=== PATIENT | female | born 1985 | race Caucasian/White ===

== ENCOUNTER 2025-01-10 10:07 | Outpatient (REF) | payer OTHER, SELFPAY ==
[2025-01-10 13:06] LABS: MANUAL DIFF FLAG NO
[2025-01-10 13:12] LABS: Hematocrit 39.4 % (37.0-47.0); Hemoglobin 12.6 g/dl (12.0-16.0); Imm Gran Abs Auto 0.02 X10*3/uL (0.00-0.03); Imm Gran Pct Auto 0.4 % (0.0-0.4); Lymphocytes Absolute Auto 1.3 X10*3/uL (1.2-4.9); Mean Corpuscular HGB Conc 32.0 g/dl (31.0-35.0); Mean Corpuscular Hemoglobin 30.7 pg (27.0-33.0); Mean Corpuscular Volume 96.1 fL (80.0-98.0); NRBC Abs Auto 0.000 X10*3/uL (0.0-0.012); NRBC Pct Auto 0.0 /100WBC (0.0-0.2); Platelet Count 275 X10*3/uL (160-400); Red Blood Count 4.10 X10*6/uL (4.20-5.50); White Blood Count 5.6 X10*3/uL (4.8-10.8)
[2025-01-10 13:28] LABS: Appearance Urine Cloudy; Glucose Urine UA Negative (Negative); PH 6.0 (5.0-9.0); Specific Gravity - Urine 1.025 (1.005-1.025); UMIC TRIGGER UACC YES
[2025-01-10 13:50] LABS: Alanine Aminotransferase 29 U/L (0-31); Albumin Level 4.8 g/dL (3.5-5.0); Alkaline Phosphatase 48 U/L (39-117); Anion Gap 11 (12-20); Aspartate Amino Transferase 24 U/L (5-31); Blood Urea Nitrogen 11 mg/dL (9-16); Calcium 9.2 mg/dL (8.4-10.2); Carbon Dioxide 26 mmol/L (22-29); Chloride 109 mmol/L (96-108); Cholesterol 190 mg/dL (<200); Erythrocyte Sedimentation Rate 2 MM/HR (0-20); Estimated Glomerular Filt Rate > 60; HDL Cholesterol 74 mg/dL (>40); Magnesium 2.1 mg/dL (1.6-2.6); Potassium 4.5 mmol/L (3.3-5.1); Sodium 141 mmol/L (135-145); Total Protein 7.0 g/dL (6.5-8.0); Triglycerides 94 mg/dL (<150)
[2025-01-10 13:55] LABS: UACC Culture Trigger YES
[2025-01-10 14:18] LABS: HBS Num1 0.00 mIU/mL (0-7.99); HBsAGNum1 0.33 S/CO (0.00-0.99); HIV Num 1 0.10 S/CO (0.00-0.99); Hepatitis B Surface Antigen Negative (Negative); ~HepC Num1 0.08 S/CO (0.00-0.79); ~Hepatitis B Surface Antibody NONREACTIVE (Nonreactive); ~Hepatitis C Antibody Nonreactive (Nonreactive)
[2025-01-10 14:32] LABS: Folate 14.1 ng/mL (> or = 4.0); Vitamin B12 442 pg/mL (200-900)
[2025-01-14 09:44] LABS: Anti Nuclear Antibody Screen NEGATIVE (NEGATIVE)
[2025-01-16 10:48] LABS: VITAMIN D (1,25 OH) D3 79 pg/mL; Vit D (1,25-Dihydroxy) Total 79 pg/mL (18-72); Vitamin D (1,25 OH) D2 <8 pg/mL
== END 2025-01-10 10:08 | disposition home or self-care (01) ==
LOC: HO.HKASLDS 10:07
PROVIDERS: PCP Student in an Organized Health Care Education/Training Program; Visit Provider Student in an Organized Health Care Education/Training Program
DX: Z13.9 Encounter for screening, unspecified (principal); R76.0 Raised antibody titer; K64.9 Unspecified hemorrhoids; G47.33 Obstructive sleep apnea (adult) (pediatric); D50.8 Other iron deficiency anemias; E03.9 Hypothyroidism, unspecified; M25.50 Pain in unspecified joint; R53.83 Other fatigue; R51.9 Headache, unspecified
CPT/HCPCS: 36415; 80053; 80061; 81001; 82607; 82652; 82746; 83036; 83735; 84443; 85025; 85652; 86038; 86140; 86200; 86225; 86431; 86706; 86803; 87086; 87340; 87389; 99202

== ENCOUNTER 2025-01-10 10:07 | Outpatient (AMB) | payer OTHER, SELFPAY ==
--- NOTE | 2025-01-10 10:18 | A.OFFPC_ITS ---
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 Anemia: - The patient reports a history of anemi a, requiring periodic blood tests to determine the need for supplementation. - She has been informed that her digesti ve system may not absorb nutrients effectively, contributing to her anemia. Hypothyroidism: - The patient has a history of hypothyro idism and requires regular monitoring of thyroid function tests. Hemorrhoids: - The patient has both internal and exte rnal hemorrhoids, confirmed by colonoscopy in [place]. - Conservative treatment with wipes is c urrently used, but surgical intervention has been recommended. Insomnia: - The patient experiences difficulty sle eping, characterized by frequent awakenings and inability to return to sleep. - She has tried melatonin without relief and denies symptoms of sleep apnea. Joint Pain: - The patient reports joint pain in shou lders, knees, and ankles, worsening over the past six months. - There is no family history of autoimmu ne diseases. Fatigue: - The patient reports significant fatigu e, potentially related to her insomnia and anemia. Headaches: - The patient experiences headaches, colleen etimes upon waking or during the night. Review of Systems - General: Reports fatigue and insomnia. - Neurological: Reports headaches, denie s dizziness or syncope. - Musculoskeletal: Reports joint pain in shoulders, knees, and ankles. - Gastrointestinal: Reports hemorrhoids, denies nausea or vomiting. - Endocrine: Reports hypothyroidism, den ies polyuria or polydipsia. 10-point ROS reviewed and negative excep t as noted in HPI Past Medical History - Anemia - Hypothyroidism - Hemorrhoids Health Maintenance - Referral to painter decorator for hem orrhoids and potential malabsorption issues. - Sleep study to evaluate insomnia. - Blood work including CBC, thyroid func tion tests, vitamin D, B12, and folate levels. - Mammogram screening ordered. Physical Exam General: Well-appearing, in no acute distress. Vital signs: Within normal limits. HEENT: Normocephalic, atraumatic. PERRLA, EOMI. Conjunctiva clear, sclera anicteric. Oropharynx clear, mucous membranes moist. TMs intact bilaterally. Neck: Supple, no lymphadenopathy, no thyromegaly, no JVD or carotid bruits. Cardiovascular: RRR, normal S1/S2, no murmurs, rubs, or gallops. Peripheral pulses 2+ and symmetric. No edema. Respiratory: Lungs clear to auscultation bilaterally, no wheezes, rales, or rhonchi. Normal effort. Abdomen: Soft, non-tender, non-distended. Normoactive bowel sounds. No hepatosplenomegaly, no masses. MSK: Full range of motion, no joint swelling or deformity. Normal gait. Skin: Warm, dry, intact. No rashes, lesions, or pallor. Neuro: Alert and oriented x3. Cranial nerves II-XII intact. Strength 5/5 throughout. Sensation intact. Reflexes 2+ symmetric. Normal coordination and gait. Psych: Appropriate mood and affect. Normal judgment and insight. Plan 1. Anemia - Blood tests will be conducted to asses s anemia status and determine supplementation needs. - Referral to painter decorator to mauricio barahona potential malabsorption issues contributing to anemia. 2. Hypothyroidism - Thyroid function tests will be monitor ed to ensure proper management of hy pothyroidism. 3. Hemorrhoids - Referral to painter decorator for maico marin and discussion of surgical options for hemorrhoids. 4. Insomnia - A sleep study will be conducted to antonio ntify underlying causes of insomnia. - Consideration of cognitive behavioral therapy for insomnia as a non- pharmacological intervention. 5. Joint Pain - SIENNA screening will be performed to rul e out autoimmune causes of joint pain. 6. Fatigue - Fatigue will be evaluated in context o f anemia and insomnia, with follow-up after initial tests. 7. Headaches - Headache patterns will be monitored an d potential triggers assessed. Discussion Notes I discussed with the patient the need for a comprehensive evaluation of her anemia, hypothyroidism, and insomnia. We agreed on conducting a sleep study and referring her to a painter decorator for further evaluation of her hemorrhoids and potential malabsorption issues. I emphasized the importance of follow-up visits to review test results and adjust treatment plans accordingly. Patient was informed and verbally consented to the use of an ambient scribefor clinic note documentation during this visit. Patient Instructions - Follow up with the painter decorator for hemorrhoids and digestive concerns. - Complete the sleep study as instructed and return the equipment promptly. - Attend follow-up appointment to [facility] s blood test results and next steps. - Monitor headache patterns and note any potential triggers. Total time spent caring for the patient today was 45 minutes. This includes time spent before the visit reviewing the chart, time spent documenting, and time spent reviewing laboratory results, diagnostic imaging, medications, performing a medically necessary evaluation, counseling on diagnoses, care coordination, ordering appropriate tests, ordering appropriate medications, review of tests performed by other providers, reporting test results with the patient. [facility] Medical History (Updated 01/10/25 @ 10:34 by Florentino Crump MD) Insomnia Hemorrhoids Family History (Updated 01/10/25 @ 10:25 by Kaity Escamilla CMA) Mother No problems noted. Father No problems noted. Social History Housing: House Patient Tobacco Use Status: Never used Tobacco service: No Current occupational status: unemployed Cognitive needs: No Hearing needs: No Vision needs: No Questionnaire PHQ-9 Over the last 2 weeks, how often have you been bothered by any of the following problems? 1. Little interest or pleasure in doing things: more than half the days 2. Feeling down, depressed, or hopeless: several days 3. Trouble falling or staying asleep, or sleeping too much: nearly every day 4. Feeling tired or having little energy: more than half the days 5. Poor appetite or overeating: not at all 6. Feeling bad about yourself - or that you are a failure or have let yourself or your family down: not at all 7. Trouble concentrating on things, such as reading the newspaper or watching television: not at all 8. Moving or speaking so slowly that other people could have noticed. Or the opposite - being so fidgety or restless that you have been moving around a lot more than usual: not at all 9. Thoughts that you would be better off or of hurting yourself in some way: not at all Total score: 8 Source: Developed by Drs. Carlton Mcadams, Kavon Nuñez and colleagues, with an educational nishant from [employer]. Thrive Questionnaire Date Thrive assessed: 01/10/25 I am a: Patient What is your living situation today?: I have a steady place to live Within the past 12 months, did the food you bought not last and you didn't have the money to get more?: Never true Within the past 12 months, did you worry whether your food would run out before you got money to buy more?: Never true Do you have trouble paying for medicines?: No Do you have trouble getting transportation to medical appointments?: No Do you have trouble paying your heating and electricity bill?: No Do you have trouble taking care of your child, family member or friend?: No Are you currently unemployed and looking for a job?: I choose not to answer this question Are you interested in more education?: I choose not to answer this question Please select the resources that you would like help with: None Currently or been in a relationship where the following occur: I choose not to answer THRIVE Score: 0 AUDIT C Alcohol Use Questionnaire (AUDIT-C) 1. How often do you have a drink containing alcohol?: Never Total Score: 0 GEORGE-7 AMB Questionnaire GEORGE-7 Feeling nervous, anxious, or on edge: 2 = More than half the days Not being able to stop or control worryin = More than half the days Worrying too much about different things: 1 = Several days Trouble relaxin = More than half the days Being so restless that it is hard to sit still: 1 = Several days Becoming easily annoyed or irritable: 2 = More than half the days Feeling afraid as if something awful might happen: 0 = Not at all Total GEORGE-7 score (0-4 normal; 5-9 mild; 10-14 moderate; 15-21 severe): 10 Source: Developed by Drs. Carlton Mcadams, Kavon Nuñez and colleagues, with an educational nishant from [employer]. Physical exam (Primary Care) Vital Signs: Last Vital Signs Temp 97.9 F 01/10/25 10:19 Pulse 77 01/10/25 10:19 BP 123/73 01/10/25 10:19 Pulse Ox 96 01/10/25 10:19 Oxygen Delivery Method Room Air 01/10/25 10:19 Tobacco/Smoking Status: Tobacco use Status Tobacco use date assessed 01/10/25 01/10/25 10:26 Patient Tobacco Use Status Never used Tobacco 01/10/25 10:26 PHQ-9: PHQ-9 Score PHQ-9: Total score 8 01/10/25 11:17 Thrive Assessment: Date of Thrive Assessment Date Thrive assessed 01/10/25 01/10/25 10:26 Currently or been in a relationship where the following occur: I choose not to answer Coding Level of Care Code New Pt Level 4 (81816) Diagnoses Hemorrhoids K64.9 Insomnia G47.00 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 D50.8 Hypothyroid E03.9 Joint pain M25.50 Fatigue R53.83 Headache R51.9 Assessment & Plan Assessment & Plan (1) Hemorrhoids: Code(s): K64.9 - Unspecified hemorrhoids Category: Medical (2) Insomnia: Code(s): G47.00 - Insomnia, unspecified Category: Medical (3) 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: Code(s): D50.8 - Other iron deficiency anemias (4) Hypothyroid: Code(s): E03.9 - Hypothyroidism, unspecified (5) Joint pain: Code(s): M25.50 - Pain in unspecified joint (6) Fatigue: Code(s): R53.83 - Other fatigue (7) Headache: Code(s): R51.9 - Headache, unspecified Plan Orders: Orders Complete Blood Count Auto Diff Today Z13.9 - Encounter for screening, unspecified Comprehensive Met. Panel Today Z13.9 - Encounter for screening, unspecified Hepatitis B Surface Antibody Today Z13.9 - Encounter for screening, unspecified Hepatitis B Surface Antigen Today Z13.9 - Encounter for screening, unspecified Hepatitis C Antibody Today Z13.9 - Encounter for screening, unspecified HIV Ab/Ag Today Z13.9 - Encounter for screening, unspecified Lipid Panel Today Z13.9 - Encounter for screening, unspecified Magnesium Today Z13.9 - Encounter for screening, unspecified Vitamin D 1,25 dihydroxy Today Z13.9 - Encounter for screening, unspecified C Reactive Protein Today R76.0 - Raised antibody titer Cyclic Citrullinated Peptide Today R76.0 - Raised antibody titer Anti DNA DS Antibody Today R76.0 - Raised antibody titer RT home sleep study Today G47.00 - Insomnia, unspecified, Z13.9 - Encounter for screening, unspecified Hemoglobin A1c Today Z13.9 - Encounter for screening, unspecified Hepatitis C Antibody Reflex Today Z13.9 - Encounter for screening, unspecified TSH reflex Free T4 Today Z13.9 - Encounter for screening, unspecified UA CC w/rflx Micro + Cult Today Z13.9 - Encounter for screening, unspecified Vitamin B12 and Folate Today Z13.9 - Encounter for screening, unspecified Erythrocyte Sedimentation Rate Today R76.0 - Raised antibody titer SIENNA Reflex Titer and Pattern Today R76.0 - Raised antibody titer Rheumatoid Factor Today R76.0 - Raised antibody titer MM screening mammo BI Today Z12.31 - Encounter for screening mammogram for malignant neoplasm of breast Referrals Gastroenterology Referral K64.9 - Unspecified hemorrhoids, Z13.9 - Encounter for screening, unspecified
[2025-01-10 10:19] VITALS: BP 123/73; PULSE 77; TEMP 36.6; O2SAT 96
== END 2025-01-10 10:49 | disposition home or self-care (01) ==
LOC: HO.HMCFMS 10:08
PROVIDERS: Visit Provider Student in an Organized Health Care Education/Training Program
DX: K64.9 Unspecified hemorrhoids (principal); G47.00 Insomnia, unspecified; D50.8 Other iron deficiency anemias; E03.9 Hypothyroidism, unspecified; M25.50 Pain in unspecified joint; R53.83 Other fatigue; R51.9 Headache, unspecified

== ENCOUNTER 2025-01-25 15:18 | Outpatient (REF) | payer OTHER, SELFPAY ==
[2025-01-25 18:35] LABS: Iron 65 mcg/dL (30-160); Percent Iron Saturation 23 % (15-50); Total Iron Binding Capacity 277 mcg/dL (228-428); Unsaturated Iron Binding 212 ug/dL
[2025-01-25 19:04] LABS: Ferritin 35 ng/mL (10-250)
[2025-01-26 08:53] LABS: Transferrin 246 mg/dL (188-341)
== END 2025-01-25 15:19 | disposition home or self-care (01) ==
LOC: HO.HKASLDS 15:18
PROVIDERS: PCP Student in an Organized Health Care Education/Training Program; Visit Provider Student in an Organized Health Care Education/Training Program
DX: R61 Generalized hyperhidrosis (principal); D50.9 Iron deficiency anemia, unspecified; E03.9 Hypothyroidism, unspecified; G47.00 Insomnia, unspecified; R53.83 Other fatigue; G43.829 Menstrual migraine, not intractable, without status migrainosus; R82.90 Unspecified abnormal findings in urine
CPT/HCPCS: 36415; 82728; 83540; 84466; 96127; 99212

== ENCOUNTER 2025-01-25 15:18 | Outpatient (AMB) | payer OTHER, SELFPAY ==
--- NOTE | 2025-01-25 15:23 | A.OFFPC_ITS ---
Vital Signs 01/25/25 15:29 Height 5 ft 6.14 in Weight 112 lb 6 oz BMI 18.1 BP 118/75 Blood Pressure Location Lt brachial Position Sitting Respiration 16 Pulse 75 Pulse Source Monitor Temp 97.9 F Temp Source Oral Pulse Oximetry (%) 99 Oxygen Delivery Method Room Air Intake Visit Reasons: 2 wk f/u Intake Note: f/u Accompanied by: Self / Same As Patient Allergies No Known Allergies Allergy (Verified 01/25/25 15:27) Tobacco use date assessed: 01/25/25 Dental Screening Dental Screen Date: 01/25/25 Did you have a dental visit in the last 12 months?: No Did you have a dental problem in the last 6 months where you did not have access to dental care?: No Was dental information given to patient?: No HPI HPI Comments History of Present Illness Details History of Present Illness The patient is a 39-year-old female presenting for a follow-up visit to review lab results and discuss concerns including anemia, hypothyroidism, joint pain, h eadaches, and insomnia. Hypothyroidism: The patient has a history of hypothyroidism and was taking levothyroxine. She reports not having taken the medication since May or June of this year after moving, as she ran out of her prescription. Headache: The patient reports a new onset of heavy and more frequent headaches since moving in May. These headaches often begin one to two weeks before her period and can occur late at night or during the day. She previously used to take 400 mg of ibuprofen for relief, but now takes 600 mg, which provides delayed relief, and the headaches recur. She reports some associated numbness during these episodes. Anemia (history of): The patient has a history of anemia with low iron deficiency, with a prior iron level of 10. She reports feeling tired and believes her iron is low. The patient stopped taking her iron supplements because she ran out. Night Sweats: Since May, the patient has experienced night sweats during her period, which are severe enough to require changing her T-shirt multiple times at night due to being wet. Insomnia: The patient reports issues with insomnia and is awaiting a home sleep study. Joint pain: The patient has a history of joint pain. Medications: - Ibuprofen 600 mg for headaches. - Vitamin D supplements. - Levothyroxine 25 mcg for hypothyroidis m (non-adherent). - Iron supplements (non-adherent). Social History: - Patient moved to the area in May of this year. Diagnostic Results: - CBC: White blood cell count is good. - Red blood cell count is slightly low a t 4.10. - Hemoglobin is 12.6 and hematocrit is g ood. - MCV is 96. - Inflammatory markers: Normal. - SIENNA: Normal. - Rheumatoid Factor and lupus screen: Ne gatтатьяна. - Comprehensive Metabolic Panel: Sodium, potassium, renal function, and liver function are normal. - A1c: Good. - Cholesterol: Normal. - Vitamin B12: Good. - Vitamin D: Elevated at 79. - Folate: Good. - TSH: Normal. - Hepatitis B, C, and HIV: Negative. - Urinalysis: Positive for a small amoun t of blood and an elevated white blood cell count. Past Medical History - Hypothyroidism - History of iron deficiency anemia - Hemorrhoids - Insomnia - Joint pain Health Maintenance - The patient has pending referrals for a gastroenterology consultation, a mammogram, and a home sleep study. - There have been issues with the referr als being processed through her [employer] insurance. [facility] Medical History (Updated 01/10/25 @ 10:34 by Florentino Crump MD) Insomnia Hemorrhoids Family History Mother No problems noted. Father No problems noted. Social History (Updated 01/25/25 @ 15:29 by Fernando Almendarez MA) Housing: House Alcohol intake: current Comment: rarely Patient Tobacco Use Status: Never used Tobacco e-Cigarette/Vaping Use: Never Used service: No Current occupational status: unemployed Cognitive needs: No Hearing needs: No Vision needs: No Questionnaire Thrive Questionnaire Date Thrive assessed: 01/10/25 I am a: Patient What is your living situation today?: I have a steady place to live Within the past 12 months, did the food you bought not last and you didn't have the money to get more?: Never true Within the past 12 months, did you worry whether your food would run out before you got money to buy more?: Never true Do you have trouble paying for medicines?: No Do you have trouble getting transportation to medical appointments?: No Do you have trouble paying your heating and electricity bill?: No Do you have trouble taking care of your child, family member or friend?: No Do you have trouble with day-to-day activities such as bathing, preparing meals, shopping, managing finances, etc.?: No Are you currently unemployed and looking for a job?: I choose not to answer this question Are you interested in more education?: I choose not to answer this question Please select the resources that you would like help with: None Currently or been in a relationship where the following occur: I choose not to answer THRIVE Score: 0 AUDIT C Alcohol Use Questionnaire (AUDIT-C) 2. How many drinks containing alcohol do you have on a typical day when you are drinking?: 1 or 2 3. How often do you have six or more drinks on one occasion?: Never Total Score: 0 GEORGE-7 AMB Questionnaire GEORGE-7 Date GEORGE - 7 assessed: 01/25/25 Source: Developed by Drs. Carlton Mcadams, Taylor Lozano, Kavon Plummer and colleagues, with an educational nishant from [employer]. Review of Systems Narrative Review of Systems - Constitutional: Reports fatigue and feeling tired. - Reports night sweats during her menstrual period. - Neurological: Reports an increase in headache severity and frequency, occu rring premenstrually. - Reports numbness with headaches. - Denies double vision or facial numbness. - Musculoskeletal: Reports joint pain. - Genitourinary: Denies dysuria or urinary frequency. - Gastrointestinal: Reports a history of hemorrhoids. - Psychiatric: Reports insomnia. 10-point ROS reviewed and negative except as noted in HPI Physical exam (Primary Care) Vital Signs: Last Vital Signs Temp 97.9 F 01/25/25 15:29 Pulse 75 01/25/25 15:29 Resp 16 01/25/25 15:29 BP 118/75 01/25/25 15:29 Pulse Ox 99 01/25/25 15:29 Oxygen Delivery Method Room Air 01/25/25 15:29 BMI result Body Mass Index 18.1 Tobacco/Smoking Status: Tobacco use Status Tobacco use date assessed 01/25/25 01/25/25 15:31 Patient Tobacco Use Status Never used Tobacco 01/25/25 15:29 e-Cigarette/Vaping Use Never Used 01/25/25 15:31 Thrive Assessment: Date of Thrive Assessment Date Thrive assessed 01/10/25 01/25/25 15:26 Currently or been in a relationship where the following occur: I choose not to answer Narrative Physical Exam General: Well-appearing, in no acute distress. Vital signs: Within normal limits. HEENT: Normocephalic, atraumatic. PERRLA, EOMI. Conjunctiva clear, sclera anicteric. Oropharynx clear, mucous membranes moist. TMs intact bilaterally. Neck: Supple, no lymphadenopathy, no thyromegaly, no JVD or carotid bruits. Cardiovascular: RRR, normal S1/S2, no murmurs, rubs, or gallops. Peripheral pulses 2+ and symmetric. No edema. Respiratory: Lungs clear to auscultation bilaterally, no wheezes, rales, or rhonchi. Normal effort. Abdomen: Soft, non-tender, non-distended. Normoactive bowel sounds. No hepatosplenomegaly, no masses. MSK: Full range of motion, no joint swelling or deformity. Normal gait. Skin: Warm, dry, intact. No rashes, lesions, or pallor. Neuro: Alert and oriented x3. Cranial nerves II-XII intact. Strength 5/5 throughout. Sensation intact. Reflexes 2+ symmetric. Normal coordination and gait. Psych: Appropriate mood and affect. Normal judgment and insight. Coding Level of Care Code Est Pt Level 4 (89056) Diagnoses Hypothyroidism E03.9 Iron deficiency anemia D50.9 Fatigue R53.83 Menstrual headache G43.829 Hypovitaminosis D E55.9 Abnormal urinalysis R82.90 Assessment & Plan Assessment & Plan (1) Hypothyroidism: Code(s): E03.9 - Hypothyroidism, unspecified (2) Iron deficiency anemia: Code(s): D50.9 - Iron deficiency anemia, unspecified (3) Fatigue: Code(s): R53.83 - Other fatigue (4) Menstrual headache: Code(s): G43.829 - Menstrual migraine, not intractable, without status migrainosus (5) Hypovitaminosis D: Code(s): E55.9 - Vitamin D deficiency, unspecified (6) Abnormal urinalysis: Code(s): R82.90 - Unspecified abnormal findings in urine Plan Consent Patient was informed and verbally consented to the use of an ambient scribe for clinic note documentation during this visit. Plan 1. Hypothyroidism - The patient's fatigue may be attributable to her non-adherence to levothyroxine for the past several months. - She was educated that her normal thyroid lab results were due to her prior use of the medication and that she needs to continue taking it. - A 3-month prescription for levothyroxine 25 mcg will be sent to a pharmacy once provided by the patient. - Thyroid levels should be checked every 3-6 months. 2. Anemia/Fatigue - Although the patient's hemoglobin and MCV are within normal limits, she has a history of iron deficiency anemia and reports feeling tired. - An iron panel, including ferritin and saturation, will be ordered to assess her iron stores. - Iron supplementation will be initiated if a deficiency is confirmed. 3. Headache - The patient's new headaches are likely menstrual in nature as they occur premenstrually. - A prescription for ibuprofen 600 mg will be sent to the pharmacy. - The patient was instructed to keep a headache journal to track frequency, timing, triggers, relieving factors, and associated symptoms like visual changes or numbness. - A referral to a neurologist was discussed but will be deferred pending review of the headache journal. 4. Hypervitaminosis D - The patient's vitamin D level is elevated at 79, which can cause fatigue. - Advised the patient to stop taking her vitamin D supplement to allow levels to return to the normal range. 5. Abnormal Urinalysis - Urinalysis revealed microscopic hematuria and pyuria. - The patient denies urinary symptoms such as dysuria or frequency. - No immediate action or further workup was planned during this visit. 6. Pending Referrals - The patient has outstanding referrals for gastroenterology, a mammogram, and a home sleep study. - The office staff will assist the patient in resolving the insurance authorization issue with [facility]OREN[facility]. Discussion Notes I reviewed the patient's lab results, which were generally reassuring. I explained that her normal thyroid function test was likely the result of the levothyroxine she was prescribed and that her nonadherence for the past six months could be contributing to her fatigue. We discussed restarting levothyroxine 25 mcg, and I will send a 3-month prescription. Regarding her fatigue and history of anemia, I explained that while her current hemoglobin is normal, we should check her iron stores, and I will order an iron panel. We also discussed her elevated vitamin D level, and I advised her to stop her supplement as excess vitamin D can also cause fatigue. In response to her new, severe headaches, I explained they are likely related to her menstrual cycle. I recommended she keep a detailed headache journal to better characterize them and defer a neurology referral for now. I will pre scribe ibuprofen 600 mg for pain relief. Finally, we addressed the pending referrals for gastroenterology, mammogram, and a sleep study, and I informed her the office staff would assist with resubmit ting them to her insurance. Patient Instructions - Restart your thyroid medication, levothyroxine 25 mcg, once the prescription is sent. - Stop taking your vitamin D supplement for now, as your levels are a little high. - Go to the lab to have your blood drawn to check your iron levels. - For your headaches, you can take the prescribed ibuprofen 600 mg. - Keep a daily journal of your headaches. - Note when they happen, what you were doing, how they feel, and what makes them better. - Please provide the front counter clerk with your preferred pharmacy information so we can send your prescriptions. - Our office staff will help sort out the insurance issues for your pending referrals for the gut specialist, mammogram, and sleep study. Medical Decision Making The patient is a 39-year-old female presenting for review of labs and management of multiple complaints. Her primary symptom is fatigue, which is likely multifactorial. The patient's non-adherence to levothyroxine for the past six months is a significant potential cause, as untreated hypothyroidism can lead to fatigue. Although her CBC is unremarkable, her personal history of iron deficiency anemia and subjective symptoms warrant an iron panel to rule out depleted iron stores as another contributor to her fatigue. Additionally, her elevated vitamin D level could be a factor, and cessation of supplementation is a simple intervention. The patient's new-onset headaches have features of menstrual migraine, given their timing and severity. Before considering a neurology referral, a headache diary is the most appropriate next step to establish a clear pattern and guide further management. Symptomatic relief with prescription-strength ibuprofen is warranted. Lab review showed no evidence of an active autoimmune or rheumatological process to explain her joint pain. The abnormal urinalysis findings of hematuria and pyuria are noted, but given the absence of symptoms, watchful waiting is appropriate at this time. Plan is to restart thyroid medication, check iron studies, and have the patient track headaches while the office assists with pending referral authorizations. Total time spent caring for the patient today was 30 minutes. This includes time spent before the visit reviewing the chart, time spent documenting, and time spent reviewing laboratory results, diagnostic imaging, medications, performing a medically necessary evaluation, counseling on diagnoses, care coordination Orders: Orders Ferritin Today D50.9 - Iron deficiency anemia, unspecified IRON PROFILE Today D50.9 - Iron deficiency anemia, unspecified Transferrin Today D50.9 - Iron deficiency anemia, unspecified Medications: New levothyroxine 25 mcg PO DAILY 90 caps 0RF ibuprofen 600 mg PO Q8H PRN 30 tabs 0RF pain
[2025-01-25 15:29] VITALS: BP 118/75; PULSE 75; RESP 16; TEMP 36.6; O2SAT 99; BMI 18.1
== END 2025-01-25 15:55 | disposition home or self-care (01) ==
LOC: HO.HMCFMS 15:18
PROVIDERS: Visit Provider Student in an Organized Health Care Education/Training Program
DX: E03.9 Hypothyroidism, unspecified (principal); D50.9 Iron deficiency anemia, unspecified; R53.83 Other fatigue; G43.829 Menstrual migraine, not intractable, without status migrainosus; E55.9 Vitamin D deficiency, unspecified; R82.90 Unspecified abnormal findings in urine

== ENCOUNTER 2025-02-17 14:55 | Outpatient (AMB) | payer OTHER, SELFPAY ==
--- NOTE | 2025-02-17 15:06 | MHC.PC.OV ---
Vital Signs 02/17/25 15:07 Height 5 ft 6.14 in Weight 111 lb 8 oz BMI 17.9 BP 111/59 L Blood Pressure Location Rt brachial Position Sitting Pulse 81 Pulse Source Pulse Oximeter Temp 97.4 F Temp Source Oral Pulse Oximetry (%) 98 Oxygen Delivery Method Room Air Intake Visit Reasons: 2 wk f/u Allergies No Known Allergies Allergy (Verified 02/17/25 15:07) Medication List - Last Reconciled 02/18/25 by Florentino Crump MD ibuprofen 600 mg PO Q8H PRN levothyroxine 25 mcg PO DAILY Tobacco use date assessed: 01/25/25 Dental Screening Dental Screen Date: 01/25/25 HPI HPI Comments History of Present Illness Details History of Present Illness The patient is a 39 year old individual presenting for a review of lab results. Sleep Disturbance and Suspected Hormonal Imbalance: The patient reports experiencing stress secondary to a physical condition characterized by waking up at night. Given that the patient's thyroid and iron labs were normal, the patient suspects a hormonal issue is the cause of the symptoms. A sleep study is scheduled for March or May to further evaluate the sleep disturbances. Social History: - Reports stress at home, which the patient believes is caused by the patient's physical condition of waking at night. Diagnostic Results: - Labs: Iron and iron saturation levels are within normal limits. Past Medical History Health Maintenance - Lab result review: Iron and iron saturation levels are normal. - Diagnostic testing: A sleep study is scheduled for March or May. - Referrals: The patient will be referred to NETWORK ENGINEER ADMINISTRATOR for hormonal evaluation. [facility] Medical History (Updated 02/18/25 @ 07:56 by Florentino Crump MD) Perimenopausal symptom Hypothyroid Hormone imbalance Night sweats Insomnia Hemorrhoids Family History Mother No problems noted. Father No problems noted. Social History (Updated 01/25/25 @ 15:29 by Fernando Almendarez CMA) Housing: House Alcohol intake: current Comment: rarely Patient Tobacco Use Status: Never used Tobacco e-Cigarette/Vaping Use: Never Used service: No Current occupational status: unemployed Cognitive needs: No Hearing needs: No Vision needs: No Questionnaire Thrive Questionnaire Date Thrive assessed: 01/10/25 I am a: Patient What is your living situation today?: I have a steady place to live Within the past 12 months, did the food you bought not last and you didn't have the money to get more?: Never true Within the past 12 months, did you worry whether your food would run out before you got money to buy more?: Never true Do you have trouble paying for medicines?: No Do you have trouble getting transportation to medical appointments?: No Do you have trouble paying your heating and electricity bill?: No Do you have trouble taking care of your child, family member or friend?: No Do you have trouble with day-to-day activities such as bathing, preparing meals, shopping, managing finances, etc.?: No Are you currently unemployed and looking for a job?: I choose not to answer this question Are you interested in more education?: I choose not to answer this question Please select the resources that you would like help with: None Currently or been in a relationship where the following occur: I choose not to answer THRIVE Score: 0 GEORGE-7 AMB Questionnaire GEORGE-7 Date GEORGE - 7 assessed: 01/25/25 Source: Developed by Drs. Carlton Mcadams, Taylor Lozano, Kavon Plummer and colleagues, with an educational nishant from [employer]. Review of Systems Narrative Review of Systems - Psychological: Reports stress. - Neurological: Reports waking up at night. - Endocrine: Reports belief that symptoms are due to a hormonal issue. 10-point ROS reviewed and negative except as noted in HPI Physical exam (Primary Care) Vital Signs: Last Vital Signs Temp 97.4 F 02/17/25 15:07 Pulse 81 02/17/25 15:07 BP 111/59 L 02/17/25 15:07 Pulse Ox 98 02/17/25 15:07 Oxygen Delivery Method Room Air 02/17/25 15:07 BMI result Body Mass Index 17.9 Tobacco/Smoking Status: Tobacco use Status Tobacco use date assessed 01/25/25 02/17/25 15:08 Patient Tobacco Use Status Never used Tobacco 02/17/25 15:08 e-Cigarette/Vaping Use Never Used 02/17/25 15:08 Thrive Assessment: Date of Thrive Assessment Date Thrive assessed 01/10/25 02/17/25 15:08 Currently or been in a relationship where the following occur: I choose not to answer Narrative Physical Exam General: Well-appearing, in no acute distress. Vital signs: Within normal limits. HEENT: Normocephalic, atraumatic. PERRLA, EOMI. Conjunctiva clear, sclera anicteric. Oropharynx clear, mucous membranes moist. TMs intact bilaterally. Neck: Supple, no lymphadenopathy, no thyromegaly, no JVD or carotid bruits. Cardiovascular: RRR, normal S1/S2, no murmurs, rubs, or gallops. Peripheral pulses 2+ and symmetric. No edema. Respiratory: Lungs clear to auscultation bilaterally, no wheezes, rales, or rhonchi. Normal effort. Abdomen: Soft, non-tender, non-distended. Normoactive bowel sounds. No hepatosplenomegaly, no masses. MSK: Full range of motion, no joint swelling or deformity. Normal gait. Skin: Warm, dry, intact. No rashes, lesions, or pallor. Neuro: Alert and oriented x3. Cranial nerves II-XII intact. Strength 5/5 throughout. Sensation intact. Reflexes 2+ symmetric. Normal coordination and gait. Psych: Appropriate mood and affect. Normal judgment and insight. Coding Level of Care Code Est Pt Level 3 (94027) Diagnoses Hypothyroid E03.9 Night sweats R61 Insomnia G47.00 Hormone imbalance E34.9 Perimenopausal symptom N95.1 Assessment & Plan Assessment & Plan (1) Hypothyroid: Code(s): E03.9 - Hypothyroidism, unspecified Category: Medical (2) Night sweats: Code(s): R61 - Generalized hyperhidrosis Category: Medical (3) Insomnia: Code(s): G47.00 - Insomnia, unspecified Category: Medical (4) Hormone imbalance: Code(s): E34.9 - Endocrine disorder, unspecified Category: Medical (5) Perimenopausal symptom: Code(s): N95.1 - Menopausal and female climacteric states Category: Medical Plan Consent Patient was informed and verbally consented to the use of an ambient scribe for clinic note documentation during this visit. Plan 1. Sleep Disturbance - The patient reports waking at night, which is causing stress. - A sleep study is scheduled for March or May to investigate the cause of the sleep disturbance. 2. Suspected Hormonal Imbalance - The patient suspects a hormonal cause for symptoms, as thyroid and iron labs were normal. - A referral will be made to NETWORK ENGINEER ADMINISTRATOR for consultation and further evaluation. - The NETWORK ENGINEER ADMINISTRATOR is expected to perform hormone blood tests. - The referral is to [facility]. Discussion Notes I informed the patient that the recent lab work for iron levels was normal. We discussed the patient's concern about waking at night, which the patient attributes to a hormonal imbalance since thyroid and iron studies were unremarkable. This is most like patient due to perimenopause her night log has been scanned in , I acknowledged these concerns and placed a referral to an NETWORK ENGINEER ADMINISTRATOR for further hormonal evaluation. We also confirmed that a sleep study is scheduled for March or May to investigate other potential causes of the sleep disturbance. I advised the patient that the specialist's office would call to schedule and to contact them if no call is received. Patient Instructions - Your recent blood test for iron was normal. - Continue with your plan to have a sleep study, which is scheduled for March or May. - A referral has been sent to an NETWORK ENGINEER ADMINISTRATOR specialist at [facility] to check your hormone levels. - The specialist's office will call you to make an appointment. - If you do not hear from them, please call their office directly. Medical Decision Making The patient, a 39-year-old individual, presented for a follow-up visit to review lab results and discuss ongoing symptoms of nocturnal awakening and associated stress. The iron studies were within normal limits, and prior thyroid labs were also normal. The patient expressed a strong belief that the symptoms are hormonal in origin. Given the normal preliminary workup and the patient's specific concerns, a referral to NETWORK ENGINEER ADMINISTRATOR for a specialized hormonal evaluation is warranted. Concurrently, a scheduled sleep study will help rule out a primary sleep disorder as the etiology of the symptoms. Total Time Statement 20 min Total time spent caring for the patient today includes pre-visit chart review, documentation, review of laboratory and diagnostic imaging results, medication reconciliation, medically necessary evaluation, counseling on diagnoses, care coordination, ordering appropriate tests and medications, review of tests performed by other providers, reporting test results to the patient, and communication with other healthcare providers. Orders: Referrals NETWORK [facility]ER ADMINISTRATOR Referral E34.9 - Endocrine disorder, unspecified, R61 - Generalized hyperhidrosis
[2025-02-17 15:07] VITALS: BP 111/59; PULSE 81; TEMP 36.3; O2SAT 98; BMI 17.9
== END 2025-02-17 15:25 | disposition home or self-care (01) ==
LOC: HO.HMCFMS 14:56
PROVIDERS: PCP Student in an Organized Health Care Education/Training Program; Visit Provider Student in an Organized Health Care Education/Training Program
DX: E03.9 Hypothyroidism, unspecified (principal); G47.00 Insomnia, unspecified; E34.9 Endocrine disorder, unspecified; N95.1 Menopausal and female climacteric states; R61 Generalized hyperhidrosis

== ENCOUNTER → 2025-02-17 14:55 | Outpatient (BNVA) | payer OTHER, SELFPAY | PROVIDERS: PCP Internal Medicine; Visit Provider Student in an Organized Health Care Education/Training Program | DX: Z71.2 Person consulting for explanation of examination or test findings (principal); E03.9 Hypothyroidism, unspecified; R61 Generalized hyperhidrosis; G47.00 Insomnia, unspecified; E34.9 Endocrine disorder, unspecified; N95.1 Menopausal and female climacteric states | CPT/HCPCS: 99212 ==